=== PATIENT | male | born 1955 | race Caucasian/White ===

== ENCOUNTER 2024-05-24 06:09 | Inpatient (IN) | payer MEDICARE, SELFPAY ==
[2024-05-18 08:19] VITALS: BMI 31.9
[2024-05-24] VITALS (17 sets, daily range): BP systolic 112–167; BP diastolic 64–107; PULSE 71–101; RESP 11–19; TEMP 35.7–37.2; O2SAT 90–99; BMI 30.7; BMI 31.5
--- NOTE | 2024-05-24 06:00 | DI.RAD.S_ITS ---
PROCEDURE: XR KNEE LT 1TO2V INDICATIONS: revision left TKA TECHNIQUE: 4 view(s) of the knee acquired. COMPARISON: [facility] DANIEL Wilkinson, XR BONE LENGTH SCANOGRAM, 04/24/2024, 10:35. FINDINGS: Bones: Patient is status post knee joint arthroplasty revision. Hardware components are in expected positions. Visualized bony structures are intact. Soft tissues: Overlying postoperative changes are noted. IMPRESSION: Expected post-operative appearance of a knee arthroplasty revision. Dictated by: Stephen Charles M.D. on 05/24/2024 at 13:44 Approved by: Stephen Charles M.D. on 05/24/2024 at 13:44
[2024-05-24] MEDS: MELOXICAM 7.5 MG TABLET 15 MG PO (07:10)
[2024-05-24] MEDS: ACETAMINOPHEN 325 MG TABLET 975 MG PO (07:10)
[2024-05-24] MEDS: LACTATED RINGERS 1,000 ML 42 ML IV ×2 (07:19→09:41)
--- NOTE | 2024-05-24 07:51 | PM.PREOP ---
Pre-operative Note Interval Note History & Physical reviewed/Exam performed by Physician: Yes Changes to H&P: No
--- NOTE | 2024-05-24 08:08 | SUR.OPER ---
Supine on padded OR bed. Pillow under head, arms secured on padded armboards <90 degree abduction. Safety belt across torso. Non-operative leg secured with tape over blanket over lower leg. Operative leg secured in Freddie positioner. Foam padded brace at thigh of operative leg.
[2024-05-24] MEDS: CEFAZOLIN 2 GM/100 ML PREMIX 100 ML IV ×3 (08:10→18:34)
[2024-05-24] MEDS: TRANEXAMIC ACID 1,000 MG VIAL 2000 MG INJ ×2 (08:10→11:53)
[2024-05-24] MEDS: VANCOMYCIN 1,000 MG VIAL 1000 MG INTRA-ARTI (08:41)
[2024-05-24] MEDS: ROPIVACAINE/EPI/CLONIDINE/KET 50 ML SYRINGE INJ (08:42)
--- NOTE | 2024-05-24 13:28 | P.OP_ITS ---
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 Revision of femoral and tibial component of left total knee arthroplasty (80807) 2. Intraosseous administration vancomycin (45395) 3. Prophylactic fixation of right femur (66109) Same procedure as scheduled: Yes Surgeon: Anupam Conteh Bell Staff: Elizabeth Lawson Anesthesia Type: General, Spinal, Peripheral nerve block and Local Operative Notes Estimated Blood Loss (mL): 500 Tourniquet time (min): 120 Procedure in detail: Revision of femoral and tibial components of left total knee arthroplasty for aseptic loosening of the tibial and femoral components using robotic assistance with placement of a prophylactic cerclage cable on the femur Implants: * Size 5 Legion Oxinium femoral component with 15 mm augment distal-medial, 10 mm augment distal-lateral, 5 mm augment postero-medial, 5 mm augment postero- lateral and a 14 mm x 160 mm stem * Size 18 femoral cone * Kinamed Iso elastic cerclage cable * Size 5 Tibial Component with 14 mm x 120 mm stem * Size 22 mm constrained Anna 2 Polyethylene Insert * Retained Depuy Patella Procedure Summary: This 69-year-old male patient had loosening of his femoral and tibial components radiographically as well as a cyst that was evident in his medial femoral condyle. He had been aspirated to evaluate for infection prior to an evaluation from me and the returned negative. I took him to surgery today for revision of his total knee arthroplasty. The femoral and tibial components had both completely de bonded from bone. The polyethylene insert surprisingly showed some pitting and evidence of wear. This knee replacement had been performed in 2014, so it should have been a highly cross-linked polyethylene which should not have been prone to wear and osteolysis however there was significant cystic changes behind the femur on both the medial and lateral condyle which could have been consistent with osteolysis. This also could have been associated with subsidence from the femoral component loosening. Robotic assistance was used to plan implant positioning. 14 mm stems were used on both the femur and the tibia. Cones were used on both the femur and the tibia. A large augment was required distal medially and distal laterally due to the considerable bone loss in those areas. This was a 15 mm augment on the medial side and 10 mm augment on the lateral side. I did send both the medial and lateral gutter for culture but do not anticipate that those were result positive for infection as there was no appearance infection in the knee. In order to prevent against the occurrence of infection I utilized intraosseous vancomycin immediately after tourniquet inflation and we will send him home on a course of oral cefadroxil 500 mg twice per day. Procedure in Detail: The patient was met in the preoperative holding area the day of the procedure and all questions were answered. The patient?s nares were swabbed with betadine in order to decolonize them from MRSA. Informed consent was signed and the left limb was marked with indelible ink.? The patient was brought back to the operating room where anesthesia was induced. The patient was transferred to the operating table and all bony prominences were padded. The operative site was prepped and draped in the usual sterile fashion. A second prep stick was utilized following drape placement. The incision was marked corresponding to the medial aspect of the tibial tubercle and the patella. Ioban was wrapped circumferentially around the knee. Prior to incision, tranexamic acid and cefazolin were administered. Templating images were displayed. A timeout procedure was performed verifying the patient?s identity, medical comorbidities, allergies, relevant medications, anesthesia type and the surgical plan. All present were in agreement. The assistance of a physician assistant offset press operator was required for positioning, room setup, soft tissue retraction and wound closure. Without this assistance, the procedure would have been significantly more challenging and time consuming.?? The tourniquet was inflated prior to incision. An intraosseous needle was introduced following tourniquet inflation and 50 mL of dilute vancomycin was infiltrated into the osseous canal in order to back fill all of the soft tissues in the knee with vancomycin. I reused the old incision from the patient's prior total knee arthroplasty. I excised the old scar. I dissected through subcutaneous tissues down to the extensor mechanism and identified the lateral border of the VMO. I performed a medial parapatellar arthrotomy extending down to the tibial base plate and resected around medially performing a medial peel. I then brought the knee into extension and everted the patella and removed scar from around the old patellar implant. I confirmed that it was well fixed. Placed Milly's on the medial and lateral gutters respectively and excise the gutters, sending each of them for culture. I do not anticipate that these cultures will result positive and did not note any signs of infection during inspection of the knee. I placed pins for the robotic arrays in the femur and the tibia in an area which would not interfere with placement of provisional trial implants. I Registered all of the bony anatomy and implant anatomy using special points to victorino the bone implant interfaces on both sides. I then registered the motion of the knee. It was grossly unstable due to the subsidence of the femoral component. I then created a plan using the robotic system which would balanced the flexion extension gaps and result in symmetry between the medial and lateral compartments in flexion and extension. I Confirmed implant positioning on the robotic array as well and determined that this would be appropriate for my intended construct. I then proceeded with implant removal. Both the femoral and tibial components were completely loose. I began by removing the post by hitting it with an osteotome. I then pulled the femoral component off by hand. I then removed the polyethylene insert. I then exposed the tibia and tapped it out. There was no cement bonding the implant to the bone and I was able to slide an osteotome into that interface throughout the entire tibia. The tibia did get wedged behind the posterolateral femoral condyle and hyperflexion was required to remove it but no extraction instruments were required. The bony defects of the femur were then mapped corresponding to the planned implant based on the pre resection plan. 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 There was scar tissue in those and I excised it. I found that it would be necessary to utilize distal augments to recreate the joint line so 15 mm augment was planned for the medial side and 10 mm was planned for the lateral side. These were prepped with a bur.. 5 mm augments were prepped both posterior medially and posterior laterally. I then prepped the tibia using navigation. I navigated the tibial cutting block into place corresponding to the varus valgus and slope angles which had been selected by the robotic plan. I pinned the cutting guide in place, placed retractors around the femur to protect all surrounding soft tissue structures, and made that cut. I verified the cut using the robotic system. I placed trials in the femur and tibia corresponding to the sizes that had been selected by the robotic system. An 18 mm insert had been planned and was appropriate with trialing in terms of gap symmetry. It was still somewhat loose but the revision base plate as 3 mm and at that point in time I was trialing with a primary base plate so I anticipated that given the overall balanced between the flexion and extension gaps as well as between the medial and lateral compartments the final result would be appropriate. I therefore removed all of the robotic arrays and began prepping for revision components. I removed all of the cement from the femur and the tibia using a flag osteotome. In order to achieve biologic fixation on the femur and tibia I prepared for cones on both sides. A similar process was utilized for both the femur and the tibia which involved freehand reaming in the area where the trialed components sat, and then using hand broaches to prepare the bone interface for the specific geometry of the intended cone. This was the smallest cone on the femoral side and a size 22 cone on the tibial side. Trials were placed in both of these to ensure that my intended construct would fit through them appropriately and then I performed a final round of trialing which involved placement of stems on both the femur and the tibia. I was satisfied with this trial in all tested parameters. In order to get the stem to fit in the femoral and tibial sides I did have to use rigid reamers to open the canal. I then moved forward with final implant insertion. All trial components were removed and the knee was soaked in a dilute mixture of Betadine and peroxide. The bony ends were irrigated. The cones were inserted into the femur and the tibia. A separate batch of cement was used for the tibia and femur respectively. I initially inserted cement down the tibial canal and on the tibial joint line as well as inside the cone to unitized it to the cone while ensuring that I did not put cement into the cone interface with the surrounding bone, with the exception of an area in the anterior lateral tibia where there was a large cyst which had left an area uncovered bone adjacent to the cone.. I then placed the tibial component. After I had removed the cement surrounding the tibia I again irrigated the femur and then placed cement up the femoral canal as well as around the end of the femur. Placed this inside the cone so as to unitized the construct and ensured that the cement did not disrupt the interface between the femoral cone and the bone. The femoral component was impacted into place and a trial polyethylene insert was inserted in the knee was brought into full extension. Hemostasis was achieved and an additional Betadine soak was performed. A mixture of Ropivacaine, Epinephrine, Clonidine and Toradol was infiltrated throughout the soft tissues into structures including the VMO, patellar tendon, quadriceps tendon, MCL and femoral periosteum. A low adductor canal block was also performed using this mixture unless one had been placed preoperatively by anesthesia. The knee was copiously irrigated with pulse lavage. Once cement had been allowed to dry the knee was again trialed. Range of motion was assessed by ensuring the knee could achieve full extension and assessing maximum passive knee flexion by elevating the femur and allowing the heel to passively fall towards the buttock. Gap symmetry was assessed by stressing the medial and lateral compartments in both extension and flexion. Laxity was assessed in both extension and flexion and the polyethylene trial was adjusted with shims as necessary. Patellar tracking was assessed with knee flexion. The tourniquet was let down and the polyethylene trial was removed. I inspected the knee inspected for excess cement and any residual bleeding. Once hemostasis was achieved I inserted the final polyethylene and ensured appropriate engagement of the dovetail locking mechanism.?? The arthrotomy was closed with non absorbable interrupted suture ensuring that this extended to the top of the arthrotomy. This was backed up with running barbed suture throughout the arthrotomy. The skin was closed with 2-0 and 3-0 sutures. Surgical glue was applied and a soft dressing was placed.?The sponge, instrument and needle counts were reported as being correct at the end of the case.??No obvious complications occurred. The patient was transferred from the operating table back to a stretcher. The patient emerged from anesthesia without difficulty and was taken to the PACU in a stable condition.? Plan for aftercare: * Weightbearing as tolerated * Aspirin 81 twice per day for DVT prophylaxis * Matt wound VAC in place. This should remain in place until follow up with us. The battery will after a week at which point the cord can be removed * Cefadroxil 500 mg twice per day for periprosthetic joint infection prophylaxis for 10 days * Follow cultures but do not anticipate these will resolve as positive * Multimodal pain regimen with no IV opioids ordered * Anticipate discharge home tomorrow * Follow up at [facility] in 2 weeks * Detailed postoperative instructions available at [email or web address]
[2024-05-24] MEDS: ACETAMINOPHEN 325 MG TABLET 650 MG PO ×2 (14:08→18:39)
[2024-05-24] MEDS: IBUPROFEN 600 MG TABLET PO ×2 (14:09→18:39)
[2024-05-24] MEDS: LACTATED RINGERS 1,000 ML 100 ML IV (14:10)
[2024-05-24] MEDS: ONDANSETRON 4 MG/2 ML INJ IV ×2 (15:33→20:49)
[2024-05-24] MEDS: METFORMIN HCL 500 MG TABLET 1000 MG PO (16:44)
[2024-05-24] MEDS: METOPROLOL ER 50 MG TABLET 100 MG PO (16:44)
[2024-05-24] MEDS: TAMSULOSIN 0.4 MG CAPSULE PO (21:48)
[2024-05-24] MEDS: DOCUSATE 100 MG CAPSULE PO (21:49)
[2024-05-24] MEDS: ASPIRIN EC 81 MG TABLET PO (21:49)
[2024-05-24] MEDS: PANTOPRAZOLE DR 40 MG TABLET PO (21:49)
[2024-05-24] MEDS: ATORVASTATIN 20 MG TABLET 80 MG PO (21:49)
[2024-05-25] MEDS: IBUPROFEN 600 MG TABLET PO ×2 (01:14→07:35)
[2024-05-25] MEDS: ACETAMINOPHEN 325 MG TABLET 650 MG PO ×2 (01:14→07:34)
[2024-05-25] MEDS: LACTATED RINGERS 1,000 ML 100 ML IV (01:34)
[2024-05-25] MEDS: CEFAZOLIN 2 GM/100 ML PREMIX 100 ML IV (01:34)
[2024-05-25 05:46] LABS: Hematocrit 35.7 % (41-53); Hemoglobin 12.4 g/dL (13.5-17.5)
--- NOTE | 2024-05-25 06:41 | P.DS_ITS ---
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 Revision of femoral and tibial component of left total knee arthroplasty (70089) 2. Intraosseous administration vancomycin (32197) 3. Prophylactic fixation of right femur (03584) Same procedure as scheduled: Yes Surgeon: Anupam Conteh Cloth Mercerizer Operator: Elizabeth Lawson Anesthesia Type: General, Spinal, Peripheral nerve block and Local Operative Notes Estimated Blood Loss (mL): 500 Tourniquet time (min): 120 Procedure in detail: Revision of femoral and tibial components of left total knee arthroplasty for aseptic loosening of the tibial and femoral components using robotic assistance with placement of a prophylactic cerclage cable on the femur Implants: * Size 5 Legion Oxinium femoral component with 15 mm augment distal-medial, 10 mm augment distal-lateral, 5 mm augment postero-medial, 5 mm augment postero- lateral and a 14 mm x 160 mm stem * Size 18 femoral cone * Kinamed Iso elastic cerclage cable * Size 5 Tibial Component with 14 mm x 120 mm stem * Size 22 mm constrained Anna 2 Polyethylene Insert * Retained Depuy Patella Discharge Providers Provider Date of admission: 05/24/24 06:09 Discharge Date: 05/25/24 Primary care physician: Soraya Reyna MD Consults: 05/24/24 06:00 Consult to Anesthesiology Routine Comment: Consulting Provider: Anesthesiologist Reason for consultation: Regional block for post operative pain control 05/24/24 13:37 Consult to Discharge Planning Routine Comment: Consult to Occupational Therapy Evaluate & Treat Comment: Physician Instructions: Evaluate and treat Consult to Physical Therapy Evaluate & Treat Comment: Physician Instructions: postop TKA protocol Discharge provider: Elizabeth Lawson PA-C Summary Hospital Course Discharge Diagnosis: 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 On the morning of POD# 1, he was feeling 'great' and had 'zero pain.' In review of his MAR, it did not appear as though he had any opioid pain medication since transfer to the floor. He was eating without difficulty, and after some trouble at first, he was able to void independently. He had not yet worked w/ PT but had been out of bed to the bathroom. Exam Vital Signs (past 8 hours): Oxygen Delivery Method Nasal Cannula Oxygen Flow Rate 0 Narrative Exam Narrative: 5/5 strength in hip flexors, quadriceps, hamstrings, PF, DF, EHL on left. Sensation to light touch intact throughout LLE. Calf soft and compressible. ADNISH dressing functioning; overlying RAFITA wrap CDI. Cultures x 2 sent intraoperatively both show no organisms on GS. Aerobic and anaerobic cx pending. Objective Labs 05/25/24 05:28 Labs: Laboratory Results - last 24 hr 05/25/24 05:28 Hgb 12.4 L Hct 35.7 L PFSH Medical History (Updated 05/17/24 @ 10:40 by Daniela Yan RN) Testicular cancer (2003) Seminoma Osteoarthritis MRSA (methicillin resistant Staphylococcus aureus) HTN (hypertension) HLD (hyperlipidemia) Hemorrhoids Acute diverticulitis GERD (gastroesophageal reflux disease) Diverticulosis Diabetes CAD (coronary artery disease) Surgical History (Updated 05/18/24 @ 09:29 by Daniela Yan RN) History of tonsillectomy History of total left knee replacement (07/23/14) History of total right hip arthroplasty (2014) History of orchiectomy (2003) History of lumbar fusion (1997) Hx of cervical spine surgery (08/21/14) History of carpal tunnel release of both wrists Hx of cardiac cath (03/12/22) History of partial colectomy (1988) Social History household members: significant other Smoking Status: Never smoker alcohol intake: current Discharge Assessment & Plan Assessment and Plan Assessment: 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 Cefadroxil PO x 10 days for PJI prophylaxis; will change if the wound cultures show any growth. Multimodal pain control to include cryotherapy. ASA 81mg BID x 4 weeks for VTE prophylaxis. Discharge Plan Discharge Plan Patient Disposition: Home Provider Discharge Comment: Aspirin 81mg BID Discharge orders & Medications Prescriptions: New cefadroxil 500 mg capsule 500 mg PO BID Qty: 20 0RF Continued losartan 50 mg Tablet 50 mg PO DAILY atorvastatin 80 mg Tablet 80 mg PO BEDTIME meloxicam 15 mg Tablet 15 mg PO DAILY metoprolol succinate 100 mg Tablet Extended Release 24 Hr 100 mg PO BID omeprazole 40 mg Capsule,Delayed Release(Dr/Ec) 40 mg PO BID tamsulosin 0.4 mg Capsule 0.4 mg PO BEDTIME nitroglycerin [Nitrostat] 0.4 mg Tablet, Sublingual 0.4 mg SUBLINGUAL Q5M PRN (Reason: Chest pain.) Rx Instructions: do not exceed 3 doses per episode metformin 500 mg Tablet Extended Release 24 Hr 500 mg PO QAM semaglutide 2 mg/dose (8 mg/3 mL) Pen Injector 1 mg SUBCUT QWEEK metformin 500 mg Tablet 1,000 mg PO QPM Rx Instructions: takes at night isosorbide mononitrate 30 mg Tablet Extended Release 24 Hr 30 mg PO DAILY vitamin Q52-ibbwh acid 0.5-1 mg Tablet 1 tab PO DAILY cholecalciferol (vitamin D3) [Vitamin D3] 50 mcg (2,000 unit) Capsule 4,000 unit PO DAILY Follow up/Referrals: Soraya Reyna MD [Primary Care Provider] - Anupam Conteh MD [Physician] - 06/06/24 1:00 pm (Follow up w/ Veena Lezama PA-C, at [facility]) Diet/Activity/Treatments Diet: Diet as Tolerated Activity: Weightbearing as tolerated. Walk frequently! Cold/Heat Therapy: Ice to knee as needed for pain. Skin/Wound/Dressing Care Report to your healthcare provider any signs of infection, such as:: chills, fever, night sweats, unusual drainage and unusual redness Dressing: May remove RAFITA wrap and cotton padding and shower on 05/26/2024. Leave DANISH dressing in place until follow up in office. In 5-7 days the batteries will , at which point you can cut off the battery pack and dispose of it. Leave the dressing on. No bathing or otherwise soaking incision. If the dressing becomes saturated inside, call the office. Visit Report/Discharge Packet Instructions: DI for Knee Replacement, DI for Prescription Opioid Use Stand Alone Forms: Patient Portal/API, Stroke Signs & Symptoms, Surgery Discharge Discharge Data Primary Care Provider: Soraya Reyna Quality VTE Deep Vein Thrombosis/Pulmonary Embolism Present on Admission: No
[2024-05-25] MEDS: PANTOPRAZOLE DR 40 MG TABLET PO (07:36)
[2024-05-25 08:00] VITALS: BP 124/64; PULSE 53; RESP 18; TEMP 36.6; O2SAT 94
[2024-05-25] MEDS: METFORMIN XR 500 MG TABLET PO (08:48)
[2024-05-25] MEDS: DOCUSATE 100 MG CAPSULE PO (08:48)
[2024-05-25 08:49] VITALS: BP 124/64
[2024-05-25] MEDS: METOPROLOL ER 50 MG TABLET 100 MG PO (08:49)
[2024-05-25] MEDS: ISOSORBIDE MONONITRATE ER 30 MG TABLET PO (08:49)
[2024-05-25] MEDS: CHOLECALCIFEROL (VITAMIN D3) 1,000 UNIT TABLET 4000 UNIT PO (08:49)
[2024-05-25] MEDS: MELOXICAM 7.5 MG TABLET 15 MG PO (08:49)
[2024-05-25] MEDS: ASPIRIN EC 81 MG TABLET PO (08:49)
--- NOTE | 2024-05-25 08:50 | PT.IIE ---
Current Diagnoses Mechanical loosening of internal left knee prosthetic joint, initial encounter (05/24/24) Surgery Performed Operation Date: 05/24/24 07:45 Actual Procedures p Total Knee Arthroplasty Revision - Robot(Left) - Anupam Conteh MD Surgical History (Last Updated 05/18/24 @ 09:29 by Daniela Yan, RN) History of carpal tunnel release of both wrists History of lumbar fusion (1997) History of orchiectomy (2003) History of partial colectomy (1988) History of tonsillectomy History of total left knee replacement (07/23/14) History of total right hip arthroplasty (2014) Hx of cardiac cath (03/12/22) Hx of cervical spine surgery (08/21/14) Medical History (Last Updated 05/17/24 @ 10:40 by Daniela Yan, RN) Acute diverticulitis CAD (coronary artery disease) Diabetes Diverticulosis GERD (gastroesophageal reflux disease) Hemorrhoids HLD (hyperlipidemia) HTN (hypertension) MRSA (methicillin resistant Staphylococcus aureus) Osteoarthritis Seminoma Testicular cancer (2003) Physical Therapy Inpatient Evaluation/Re-Eval M1 PT/OT-IP Prior Functional Status Start: 05/25/24 08:04 Freq: NEEDED Status: Active Protocol: Document 05/25/24 08:06 MB (Rec: 05/25/24 08:49 MB [id number]) Medical Review Prior Functional Status Medical History Reviewed Yes Diet/Fluid Consistency Regular Communication WNLs Mobility and Gait Mod I with SPC (usually in the mornings d/t left knee stiffness/pain) Activities of Daily Living and IADL's I, 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 Can stay on first floor, ramp to enter Home Environment High Toilet,Walk in Shower Home Equipment Front Wheel Walker,Straight Cane,Shower Seat without Backrest,Grab Bars Near Toilet ,Grab Bars In Shower Employment Status Retired Additional Social History Comment Borrowed hospital bed on first floor M2 PT-IP Current Condition Start: 05/25/24 08:04 Freq: NEEDED Status: Active Protocol: Document 05/25/24 08:06 MB (Rec: 05/25/24 08:49 MB [id number]) Physical Therapy Current Condition Current Condition Evaluation Date 05/25/24 Treatment Diagnosis L TKA revision M3 PT-IP Subjective Start: 05/25/24 08:04 Freq: NEEDED Status: Active Protocol: Document 05/25/24 08:06 MB (Rec: 05/25/24 08:49 MB [id number]) Subjective Physical Therapy Visit Type Type Initial Evaluation Visit Start Time 08:06 Visit Stop Time 08:26 Number of KINESIOLOGY PROFESSOR Visits 0 Physical Therapy Visit Comments Patient Comments Pt is agreeable to PT Therapy Pain Assessment Pain When Pain Assessed During Mobility Pain Present Pain Present Pain Reported Location Left knee Intensity 2 Scale Used Numeric (0 - 10) M4 PT-IP Mobility and Gait Start: 05/25/24 08:04 Freq: NEEDED Status: Active Protocol: Document 05/25/24 08:06 MB (Rec: 05/25/24 08:49 [id number]) PT-Bed Mobility Assessment Rolling Level of Assist Independent Supine to Sit Supine to Sit Independent Sit to Supine Sit to Supine Independent Scooting Scooting to Edge of Bed Independent PT-Transfer Assessment Sit to and From Stand Sit to and from Stand Independent,Standby Assistance Equipment Transfer Assistive Device Gait Belt,Front Wheeled Walker Orthotic/Prosthetic Devices or Brace: No Transfers Transfer Destination Chair,Toilet Transfer Technique Ambulation Transfer Ability Level of Assist Independent,Standby Assistance ,1 Person Assistance,Use of Upper Extremities Gait Assessment Gait Gait Assistance Required: Independent,Standby Assistance Distance (Feet) 200 Able to Maintain Weight Bearing Status Yes During Gait Assistive Devices Assistive Device Gait Belt,Front Wheeled Walker Orthotic/Prosthetic Devices or Brace: No Gait Deviations General Gait Pattern Antalgic,Decreased Stride Length,Decreased Feet Clearance,Flexed Trunk,Step-to Gait,Wide Based Gait Factors Limiting Gait Function Factors Limiting Gait Function Decreased Strength,Limited Range of Motion,Pain PT-Balance Assessment Sitting Balance and Reactions Static Sitting Balance Ability Normal Dynamic Sitting Balance Ability Good Standing Balance and Reactions Static Standing Balance Ability Good Dynamic Standing Balance Ability Good Device Used RW M5 PT-IP Objective Assessments Start: 05/25/24 08:04 Freq: NEEDED Status: Active Protocol: Document 05/25/24 08:06 MB (Rec: 05/25/24 08:49 [id number]) Orientation Orientation/Cognition Level of Alertness Alert Orientation Name,Age,Birthday,Month,Date, Year,Day of Week,Place, Situation Language Function Ability No Deficits Noted Safety Awareness Understands Safety Issues Memory Description No Deficits Noted Gross Range of Motion Upper Extremity ROM Impairments Defer to OT Lower Extremity ROM Assessment Left Impaired Impairments Left knee AROM in sitting is 30-60 deg, he does have active quad contraction Strength Lower Extremity Strength Assessment Left Impaired Comments Strength Comments Did not MMT LLE today, mild swelling and redness Coordination Assessment Assessment Coordination Comments NT Sensation Assessment Comments Sensation Comments Denies paresthesias Muscle Tone Muscle Tone WNL Yes M6 PT-IP Treatment Start: 05/25/24 08:04 Freq: NEEDED Status: Active Protocol: Document 05/25/24 08:06 MB (Rec: 05/25/24 08:49 MB [id number]) Physical Therapy Treatment Exercises Exercises Ankle Pumps,Gluteal Sets,Quad Sets,Heel Slides Education Education Provided Weight Bearing Status,Post-Op Packet,Safety Other Treatments Other Treatment Performed Ed pt in benefits of walking often with RW to work on functional heel strike, knee flexion and knee extension with WB M7 PT-IP Assessment and Plan Start: 05/25/24 08:04 Freq: NEEDED Status: Active Protocol: Document 05/25/24 08:06 MB (Rec: 05/25/24 08:49 MB [id number]) PT Summary Assessment and Plan Potential Rehabilitation Potential Excellent Status of Condition at Evaluation Evolving Summary Impairments Pain,ROM,Strength,Balance,Gait Progress Towards Goals Progressing Toward Goals Assessment Summary Pt is a pleasant 69 y/o male presenting with minimal pain and good mobility post-op day 1. Pt is SBA to I with bed mobility, transfers and gait 200'. He also toilets I. No c/ o light-headedness when up. His d/c order is in and his significant other will be driving down from [place] to pick him up. He has OPPT set-up. Frequency of Treatment Frequency Of Treatment Discharge Weight Bearing Status Weight Bearing Status Weight Bear as Tolerated Recommendations To Nursing Amount of Assist Needed Standby Assistance Discharge Recommendations PT Discharge Recommendations Home with Assistance, Outpatient PT Transportation Needs at Discharge Private Vehicle
--- NOTE | 2024-05-25 09:08 | OT.IP.EVAL ---
Current Diagnoses Mechanical loosening of internal left knee prosthetic joint, initial encounter (05/24/24) Surgery Performed Operation Date: 05/24/24 07:45 Actual Procedures p Total Knee Arthroplasty Revision - Robot(Left) - Anupam Conteh MD Past Medical History (Last Updated 05/17/24 @ 10:40 by Daniela Yan, RN) Acute diverticulitis CAD (coronary artery disease) Diabetes Diverticulosis GERD (gastroesophageal reflux disease) Hemorrhoids HLD (hyperlipidemia) HTN (hypertension) MRSA (methicillin resistant Staphylococcus aureus) Osteoarthritis Seminoma Testicular cancer (2003) Surgical History (Last Updated 05/18/24 @ 09:29 by Daniela Yan, RN) History of carpal tunnel release of both wrists History of lumbar fusion (1997) History of orchiectomy (2003) History of partial colectomy (1988) History of tonsillectomy History of total left knee replacement (07/23/14) History of total right hip arthroplasty (2014) Hx of cardiac cath (03/12/22) Hx of cervical spine surgery (08/21/14) Occupational Therapy Inpatient Evaluation/Re-Eval M1 PT/OT-IP Prior Functional Status Start: 05/25/24 08:04 Freq: NEEDED Status: Active Protocol: Document 05/25/24 09:12 [facility] (Rec: 05/25/24 09:20 [facility] [id number]) Medical Review Prior Functional Status Medical History Reviewed Yes Diet/Fluid Consistency Regular Communication WNLs Mobility and Gait Mod I with SPC (usually in the mornings d/t left knee stiffness/pain) Activities of Daily Living and IADL's I, 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 Can stay on first floor, ramp to enter Home Environment High Toilet,Walk in Shower Home Equipment Front Wheel Walker,Straight Cane,Shower Seat without Backrest,Hand Held Shower,Grab Bars Near Toilet,Grab Bars In Shower Employment Status Retired Additional Social History Comment Borrowed hospital bed on first floor M2 OT-IP Current Condition Start: 05/25/24 09:12 Freq: Status: Active Protocol: Document 05/25/24 09:12 [facility] (Rec: 05/25/24 09:20 [facility] [id number]) Occupational Therapy Current Condition Current Condition Evaluation Date 05/25/24 Treatment Diagnosis S/P revision L TKA M3 OT- IP Subjective and Pain Start: 05/25/24 09:12 Freq: Status: Active Protocol: Document 05/25/24 09:12 [facility] (Rec: 05/25/24 09:20 [facility] [id number]) OT- Subjective Occupational Therapy Visit Type Type Initial Evaluation Visit Start Time 08:45 Visit Stop Time 09:08 Occupational Therapy Visit Comments Patient Comments Pt agreed to get dressed. Patient/Caregiver Goals TO go home. OT Pain Assessment Pain When Pain Assessed During Mobility Pain Present Pain Present Pain Reported Location Left knee Intensity 3 Scale Used Numeric (0 - 10) M4 OT- IP ADL's Start: 05/25/24 09:12 Freq: Status: Active Protocol: Document 05/25/24 09:12 [facility] (Rec: 05/25/24 09:20 [facility] [id number]) OT [id number] General Evaluation Self-Feeding Ability Independent OT ADL-Grooming General Evaluation Areas Needing Assistance Retrieving/Set-up of Grooming Items Comments OT Grooming Comments WHile standing with FWW. OT ADL-Oral Care General Eval Oral Care Ability Independent OT ADL-Dressing General Eval Upper Body Dressing Ability Independent Lower Body Dressing Ability Minimal Assistance Areas Needing Assistance Shoes Comments OT Dressing Comments Assist to help slide left foot into shoes. OT ADL-Toileting General Evaluation Toileting Ability Standby Assistance Comments OT Toileting Comments Suggested able to stand with the FWW over the toilet and to be mindful of his left knee positioning while wiping. Use of urinal if needed, otherwise encouraged to get up to the bathroom. OT ADL-Bathing Comments OT Bathing Comments Suggested since the shower chair does not have a back to place it next to the shower wall that can be used as a back. Spoke of care for the bandage while showering. M5 OT- IP IADL's Start: 05/25/24 09:12 Freq: Status: Active Protocol: Document 05/25/24 09:12 [facility] (Rec: 05/25/24 09:20 [facility] [id number]) OT-Instrumental Activities of Daily Living Deficits IADL Deficits Identified Deficits Home Safety Awareness Awareness of Need for Assistance at Home Good Awareness Ability to Problem Solve Emergency Able to Problem Solve Situations Medication Management Medication Management No Deficits Identified Money Management Money Management No Deficits Identified Meal Preparation Meal Preparation Caregiver Provides Assist Round Up Ring Hand Round Up Ring Hand Caregiver Provides Assist M6 OT- IP Functional Cognition Start: 05/25/24 09:12 Freq: Status: Active Protocol: Document 05/25/24 09:12 [facility] (Rec: 05/25/24 09:20 [facility] [id number]) Cognitive Factors Limiting Selfcare Function Cognitive Ability Level of Alertness Alert Patient Orientation Name,Age,Birthday,Month,Date, Year,Day of Week,Place, Situation Attention Span Ability Capable of Focused Attention, Capable of Sustained Attention Ability to Follow Commands Able to Follow Multi-Step Commands Safety Awareness Underestimates Need for Assistance Cognitive Comments Cognitive Assessment Comments Pt intact just needing safety reminders to always keep the FWW in front of him and to sit for dressing needs at this time. OT- Vision and Hearing OT- Hearing Assessment OT- Hearing Assessment WFL OT- Vision Assessment Visual Acuity Glasses All The Time Visual Attentiveness WFL Occular Pursuits WFL M7 OT- IP Mobility and Balance Start: 05/25/24 09:12 Freq: Status: Active Protocol: Document 05/25/24 09:12 [facility] (Rec: 05/25/24 09:20 [facility] [id number]) OT-Transfer Assessment Sit to and From Stand Sit to and from Stand Standby Assistance Transfers Transfer Ability Standby Assistance Technique Transfer Destination Chair Transfer Technique Stand Step Pivot Devices Transfer Assistive Devices Gait Belt,Front Wheeled Walker Comments Mobility Comments Distant SBA with FWW for mobility in the room. OT- Balance Assessment Sitting Balance and Reactions Static Sitting Balance Ability Normal Dynamic Sitting Balance Ability Normal Standing Balance and Reactions Static Standing Balance Ability Normal Dynamic Standing Balance Ability Good M8 OT- IP Objective Assessments Start: 05/25/24 09:12 Freq: Status: Active Protocol: Document 05/25/24 09:12 [facility] (Rec: 05/25/24 09:20 [facility] [id number]) OT Gross Range of Motion Upper Extremity Range of Motion ROM Impairments WFL for needs OT Strength Upper Extremity Strength Assessment Within Functional Limits M9 OT- IP Assessment and Plan Start: 05/25/24 09:12 Freq: Status: Active Protocol: Document 05/25/24 09:12 [facility] (Rec: 05/25/24 09:20 [facility] [id number]) OT Summary Assessment and Plan Potential Rehabilitation Potential Excellent Analytic Complexity at Evaluation Low Summary OT Impairments Pain,Balance,Functional Mobility,Dressing,Bathing Progress Towards Goals Progressing Toward Goals Assessment Summary Pt low complexity and main barriers are pain and needing cues to have the FWW in front of him and sit for dressing needs. Pt to go home with assist and attend outpt PT. Goals Dressing Goal Independent Bathing Goal Standby Assistance Toilet Transfer Goal Independent Shower Transfer Goal Independent Days to Meet Goals 2 Frequency of Treatment Frequency Of Treatment Once a Day Treatment Plan OT Treatment Plan ADL Training,Functional Mobility,Patient/Family Education,Discharge Planning Discharge Recommendations OT Discharge Recommendations Home with Assistance, Outpatient PT Transportation Needs at Discharge Private Vehicle
--- NOTE | 2024-05-25 09:43 | PC.NURSE ---
Addendum entered by Aleshia Henry R.N. 05/25/24 09:58: Pt exited via w/c with SIGN ARTIST and spouse to private vehicle. Original Note: D/c instructions reviewed with pt at bedside. Discussed no driving while taking prescribed narcotics, and how to prevent constipation. Discussed instructions for adma drsg and when to remove krystin wrap. IV removed. Pt currently sitting in chair waiting for spouse to pick him up.
--- NOTE | 2024-05-25 10:48 | CM.DANOTE ---
Patient is a 69 yo male who was admitted on 05/24/24 for Revision of TKA loosening components. Pt has [facility] for insurance and his PCP is Soraya Reyna in [place]. EMR was reviewed. Per Ortho PA, pt tolerated procedure well and pain is controlled without need for opioids and voiding independently and tolerating diet and has been OOB to bathroom without concerns and medically stable to discharge home today with outpt f/u and no identified barriers to discharge. 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 Pt ambulating well and recommending home and outpt PT and pt already has PT set up after discharge. Per RN, Sig Other arrived from [place] and provided discharge instructions and no concerns and pt discharged home this morning with no needs. ANÍBAL Aguilar Discharge Planning/Care Management CM Discharge Assessment Start: 05/25/24 10:45 Freq: Status: Discharge Protocol: Document 05/25/24 10:45 BF (Rec: 05/25/24 10:46 BF [id number]) Discharge Planning Assessment Assigned Digital Media Buyer ANÍBAL Naik DPOA/Assigned Designee Name informally life partner Lyric Contact Information [phone] Advance Directives? No Advance Directives on File No History Provided By Patient,Medical Record Has Patient been admitted in last 30 No days? Prior Living Arrangements House Household Members significant other Type of transporation used prior to Drives own vehicle admit Independent with ADL's Yes Is patient alert and oriented? Yes Caregiver for Another No Community Services used prior to Physical Therapy admission: Patient/Family Preference OP PT Therapy Barriers to Discharge No Discharge Plan Home Community Services Physical Therapy Transportation Arrangement Sig Other available and provided transport home this morning Referrals Initiated None needed Review Status In Process Please Provide Date Initial DC 05/25/24 Assessment Was Performed Next Review Type Continued Stay Review Pre-Anesthesia Assessment Start: 05/18/24 08:19 Freq: Status: Complete Protocol: Document 05/18/24 08:19 LB (Rec: 05/18/24 09:31 LB [id number]) Pre-Anesthesia Assessment PAC Comment 05/18/24 Phone assessment. Patient Information Reviewed Via Phone Assessment Assessment Completed With Patient Diagnostic Results BMP/CMP,CBC,EKG Comment Outside results. Primary Care Provider Soraya Reyna Medical Clearance Received Yes Seen Specialist in Last 12 Months Yes Specialist Seen Bar Pointer,Orthopedist Comment PCP clearance in surgery folder. Primary Language Nepalese Preferred Language Nepalese Surveying Crew Rodman Required No Height 180.34 cm Weight 103.873 kg Body Mass Index (BMI) 31.9 Hearing Ability Normal Visual Assist Glasses Dentition Type Teeth, Natural Present Barriers to Learning None Other Aids No Hx Anesthesia Reactions No Hx Family Anesthesia Reaction No Hx Malignant Hyperthermia No Hx Blood Transfusions No Anesthesia Review Requested No Statue Maker No alcohol intake current alcohol intake frequency a few times a week Smoking Status Never smoker Substance Use Type [#R] does not use Pain Present Pain Reported Comment Left knee. Musculoskeletal Symptoms Difficulty Walking,Joint Pain, Joint Stiffness,Joint Swelling History of Falling (Recent or History of No ) Patient is completely paralyzed or No completely immobile Prosthesis or Orthotic Device Cane Mental Status Oriented to own ability Comment Will bring walker. Is patient on oxygen? No Does patient have SMITH/SOB No Hx Sleep Apnea No Currently Taking a Beta Sunita Yes: Metoprolol 100mg BID. Can You Climb a Flight of Stairs Without Yes SOB Hx Chest Pain Yes: chest pressure r/t GERD. Hx SOB No Hx Syncope or Dizziness No Anti-Coagulant Therapy No Has a Bar Pointer Yes Bar Pointer name Dr [place] Cardiac Testing No Hx Pacemaker/ICD No Comment Cardiac visit in surgery folder. Gastrointestinal Symptoms Reflux Chronic UTI No Bladder Pattern Frequency,Hesitancy, Incontinent,Nocturia Urinary Catheter Present No Hx Urinary Self Catheterization No Diabetes Yes HgbA1C 6.6 Date 01/24/24 Comment 01/24/24 A1c 6.6 Hx Drug Resistant Organism Yes: MRSA left arm. Presence of External or Internal Medical Yes: Cervical hardware, lumbar Devices hardware, left knee, right hip, CGM left arm. Have you had any close contact with No someone diagnosed with COVID-19? Are you experiencing any of these No symptoms symptoms? Comment Denies covid last 2 months. Lives With significant other Current Living Arrangements House Number of Floors (Floors) Two Floors Number of Stairs To Enter/Railing? Ramp to enter, main floor living. Support System Significant Other Does the Patient Have Assistance After Yes Surgery Patient Discharge Plan Description Return Home Additional comment Advised overnight LOS. Feels Safe in Current Environment Yes Do you have a plan to hurt yourself or No Plan others? Do You Have Any Spiritual Beliefs That No May Affect Your HC Choices? Emergency Contact Name Lyric Levine - significant other Emergency Contact Advance Directives? No PAC Instructions Assistance for 24 hours post- op,Diabetes instructions,Do not shave/clip surgical site, Durable medical equipment, Medications to take/avoid,No ETOH/petroleum product on skin DOS,NPO,Post-op transportation,Pre-surgical wash,Sensory aids,Sturdy shoes /comfortable clothes,Do not bring valuables and remove jewelry
== END 2024-05-25 09:59 | disposition home or self-care (01) | DRG 468 ==
PROVIDERS: Admitting Provider Orthopaedic Surgery Adult Reconstructive Orthopaedic Surgery; PCP Internal Medicine; Referring Provider Orthopaedic Surgery; Visit Provider Orthopaedic Surgery Adult Reconstructive Orthopaedic Surgery
PROC: 0SPD0JZ Removal of Synthetic Substitute from Left Knee Joint, Open Approach (ICD-10-PCS; principal; 2024-05-24 07:45)
DX: T84.033A Mechanical loosening of internal left knee prosthetic joint, initial encounter (principal); M89.552 Osteolysis, left thigh; T84.063A Wear of articular bearing surface of internal prosthetic left knee joint, initial encounter; I10 Essential (primary) hypertension; E78.5 Hyperlipidemia, unspecified; K21.9 Gastro-esophageal reflux disease without esophagitis; E11.9 Type 2 diabetes mellitus without complications; I25.10 Atherosclerotic heart disease of native coronary artery without angina pectoris; Y79.2 Prosthetic and other implants, materials and accessory orthopedic devices associated with adverse incidents; Z88.8 Allergy status to other drugs, medicaments and biological substances; Z85.47 Personal history of malignant neoplasm of testis; Z79.84 Long term (current) use of oral hypoglycemic drugs; Z79.85 Long-term (current) use of injectable non-insulin antidiabetic drugs
CPT/HCPCS: 36415; 73560; 82962; 85014; 85018; 87070; 87075; 87205; 97161; 97165; 97535; C1776; J0690; J1100; J1171; J2250; J2274; J2405; J2704; J3010